=== PATIENT | male | born 1945 | race Asian ===

== ENCOUNTER 2021-03-31 19:45 | Emergency (ER) | payer OTHER ==
[~2021-03-31] VITALS: Ht 165.1 cm; Wt 111.1 kg
[2021-03-31 19:45] VITALS: BP 184/100; TEMP 99.2
[2021-03-31 20:55] LABS: POTASSIUM 3.5 mmol/L (3.6-5.2)
[2021-03-31 21:01] LABS: PLATELET COUNT 239 K/uL (142-355)
[2021-03-31] MEDS ORDERED: AMLODIPINE BESYLATE PO (22:49)
[2021-03-31] MEDS ORDERED: JARDIANCE25 MG PO (22:51)
[2021-03-31] MEDS ORDERED: LINZESS145 MCG PO (23:10)
[2021-03-31] MEDS ORDERED: COZAAR100 MG PO (23:11)
[2021-03-31] MEDS ORDERED: OMEPRAZOLE DR20 MG PO (23:12)
[2021-03-31] MEDS ORDERED: MIRALAX17 GM/SCOO PO (23:14)
[2021-03-31] MEDS ORDERED: KLOR-CON M2020 MEQ PO (23:15)
[2021-03-31] MEDS ORDERED: RISP0.5T2 PO (23:16)
[2021-03-31] MEDS ORDERED: SERTRALINE HYD100 MG PO (23:17)
[2021-03-31] MEDS ORDERED: SIMV20TA2 PO (23:18)
[2021-03-31] MEDS ORDERED: TAMS0.4C PO (23:19)
[2021-03-31] MEDS ORDERED: TORS20TA2 PO (23:21)
[2021-03-31] MEDS ORDERED: XARELTO20 MG PO (23:22)
[2021-03-31] MEDS ORDERED: DIVA250T2 PO (23:24)
[2021-03-31] MEDS ORDERED: HYDR5TAB9 PO (23:25)
[2021-03-31] MEDS ORDERED: LORA0.5T17 PO (23:26)
[2021-03-31] MEDS ORDERED: TYLENOL325 MG PO (23:28)
[2021-03-31] MEDS ORDERED: DULCOLAX10 MG RE (23:33)
[2021-03-31] MEDS ORDERED: [UNRECOGNIZED DRUG - OTHER] PR (23:37)
[2021-03-31] MEDS ORDERED: MILK OF MA400 MG/5 M PO (23:39)
[2021-03-31] MEDS ORDERED: ONDA4TAB3 PO (23:41)
== END 2021-03-31 21:35 | disposition still patient (30) ==
LOC: ED 20:00
PROVIDERS: Hospitalist
DX: F25.8 Other schizoaffective disorders (principal); R46.89 Other symptoms and signs involving appearance and behavior; Z11.52 Encounter for screening for COVID-19; Z04.6 Encounter for general psychiatric examination, requested by authority
CPT/HCPCS: 36415; 80053; 85027; 87635; 93005; 99283; U0003

== ENCOUNTER 2022-10-27 17:11 | Emergency (ER) | payer OTHER ==
[~2022-10-27] VITALS: Ht 172.7 cm; Wt 117.0 kg
[~2022-10-27 17:11] MED LIST: AMLODIPINE BESYLATE PO; CHOL100034 PO; CLON0.5T36 PO; COZAAR100 MG PO; DIVA250T PO; DIVA250T2 PO; DULCOLAX10 MG RE; HYDR5TAB9 PO; JARDIANCE25 MG PO; KLOR-CON M2020 MEQ PO; LINZESS145 MCG PO; LORA0.5T17 PO; MILK OF MA400 MG/5 M PO; MIRALAX17 GM/SCOO PO; OMEPRAZOLE DR20 MG PO; ONDA4TAB3 PO; RISP0.25 PO; RISP0.5T2 PO; RISP1TAB PO; SERTRALINE HYD100 MG PO; SIMV20TA2 PO; TAMS0.4C PO; TORS20TA2 PO; TYLENOL325 MG PO; XARELTO20 MG PO; [UNRECOGNIZED DRUG - OTHER] PR
[2022-10-27 17:15] VITALS: BP 154/101; TEMP 98.7
[2022-10-27 17:39] LABS: PLATELET COUNT 269 K/uL (142-355)
[2022-10-27 17:48] LABS: POTASSIUM 3.7 mmol/L (3.6-5.2)
[2022-10-29] MEDS ORDERED: FUROSEMIDE40 MG PO (09:40)
[2022-10-29] MEDS ORDERED: CLON0.5T36 PO (09:41)
[2022-10-29] MEDS ORDERED: DOXA2TAB PO (09:42)
[2022-10-29] MEDS ORDERED: POTA20TA4 PO (09:42)
[2022-10-29] MEDS ORDERED: RISP50IN IM (09:43)
[2022-10-29] MEDS ORDERED: LINZESS145 MCG PO (09:44)
[2022-10-29] MEDS ORDERED: D31000 UNIT PO (09:45)
[2022-10-29] MEDS ORDERED: POLYETHYLENE GLYCOL PO (09:50)
[2022-10-29] MEDS ORDERED: HYDR5TAB9 PO (09:59)
== END 2022-10-27 18:35 | disposition still patient (30) ==
LOC: ED 17:11
PROVIDERS: Emergency Medicine
DX: F33.9 Major depressive disorder, recurrent, unspecified (principal); R45.1 Restlessness and agitation; N39.0 Urinary tract infection, site not specified; Z11.52 Encounter for screening for COVID-19; Z04.6 Encounter for general psychiatric examination, requested by authority
CPT/HCPCS: 80053; 81000; 85027; 87077; 87086; 87088; 87185; 87635; 93005; 99283; U0003